=== PATIENT | male | born 1955 | race Caucasian/White ===

== ENCOUNTER 2021-03-15 12:13 | Emergency (ER) | payer OTHER, BC, SELFPAY ==
--- NOTE | ~2021-03-15 | CT_ITS ---
EXAMINATION: CT diagnostic chest wo con EXAM DATE: 03/15/2021 16:06 INDICATION: multiple rib fractures. TECHNIQUE: Spiral CT of the chest without contrast. Axial, coronal and sagittal images of the chest were reviewed. Coronal maximum intensity pixel images of chest reviewed. The dose-length product ( DLP) for this examination was 276.96 mGy-cm. The exposure was tailored according to patient size (au to mA exposure control), and iterative reconstruction (ASIR) was used as additional dose reduction te chnique. Correlation is made to left rib x-ray same date. FINDINGS: Acute left 5th and 6th rib fractures posteriorly with minimal displacement. Acute left 7th rib fracture posteriorly with mild displacement. Possible nondisplaced fractures of these 3 ribs ante rolaterally. Right lower lobe calcified granulomas. Mediastinal and right hilar calcified lymph nodes. Mild emphys bozena. No suspicious lung nodules or opacities. There are no pleural or pericardial effusions. Trach eobronchial tree is patent. There is no mediastinal, hilar or axillary lymphadenopathy. There is no pneumothorax. Heart normal in size. No evidence of coronary arterial calcification. There is right adrenal gland adenoma measuring 2.0 cm. There are splenic granulomata. There is thoracic spond ylosis without osteoblastic or osteolytic lesions identified. IMPRESSION: 1. Left 5th-7th rib fractures. 2. No pneumothorax. 3. Mild emphysema. 4. Granulomata. 5. Right adrenal adenoma. Reviewed, dictated and finalized at location A. R OPERATOR
--- NOTE | ~2021-03-15 | XR_ITS ---
EXAMINATION: XR elbow LT min 3V DATE: 03/15/2021 15:06 INDICATION: Left elbow pain. Fall. TECHNIQUE: 4 views of left elbow were obtained. COMPARISON: None. FINDINGS: Bone alignment is normal. No fracture. Joint spaces are normal. There are enthesophytes at medial and lateral humeral epicondyles. No elbow joint effusion. IMPRESSION: 1. No fracture. Reviewed, dictated and finalized at location A. DEVELOPER CONSULTANT IMPRESSION: 1. No fracture.
--- NOTE | ~2021-03-15 | XR_ITS ---
EXAMINATION: XR tibia fibula LT 2V DATE: 03/15/2021 15:05 INDICATION: Left lower leg injury. TECHNIQUE: 2 views of left tibia and fibula on 3 radiographs were obtained. COMPARISON: None. FINDINGS: Bone alignment is normal. No fracture. There is mild left knee osteoarthritis. IMPRESSION: 1. Mild left knee osteoarthritis. Reviewed, dictated and finalized at location A. RT SPECIALIST
--- NOTE | ~2021-03-15 | XR_ITS ---
XR ribs LT 2V w CXR 2V DATE: 03/15/2021 15:05 INDICATION: Left lateral and posterior rib pain following fall TECHNIQUE: Frontal and lateral views of chest. 5 left rib views COMPARISON: None FINDINGS: Posterior acute left fifth through seventh rib fractures are noted, with minimal displaceme nt of the left fifth and sixth rib fractures and approximately 4 mm displacement at the posterior lef t seventh rib fracture. Subtle nondisplaced likely recent lateral left sixth and seventh rib fracture s are noted as well. There is minimal atelectasis at the lung bases. No pneumothorax is identified. No pleural effusion is detected. Cardiac images also through unremarkable. There is aortic arch calcification. There is evidence of ol d pulmonary granulomatous disease. IMPRESSION: Multiple recent left rib fractures Reviewed, dictated and finalized at location A. Y WEIGHER
[2021-03-15 12:38] VITALS: BP 115/99; PULSE 76; RESP 20; TEMP 36.8; O2SAT 98
--- NOTE | 2021-03-15 14:27 | ED.FALL ---
HPI - Fall General Chief Complaint: Fall Stated Complaint: fall- cracked ribs Time Seen by Provider: 03/15/21 14:01 Source: patient Mode of arrival: wheelchair Limitations: no limitations History of Present Illness HPI Narrative: This is a 66 year old male that presents to the ER after a ground level fall today with rib pain. Reports he tripped over a cone and fell backwards. Reports left sided rib pain and superficial abrasions to the left elbow and left lower leg. He is up to date on tetanus. Denies hitting his head, loss of consciousness, vision changes, vomiting, numbness, or weakness. Related Data Allergies Allergy/AdvReac Type Severity Reaction Status Date / Time No Known Allergies Allergy Verified 03/15/21 13:57 Review of Systems Review of Systems: CONSTITUTIONAL: Denies fever EYES: Denies visual changes CARDIOVASCULAR: Reports chest/rib pain RESPIRATORY: Denies dyspnea. GASTROINTESTINAL: Denies vomiting MUSCULOSKELETAL: Reports joint pain, and myalgia. NEUROLOGIC: Denies numbness, or weakness. All systems reviewed & are unremarkable except as noted in HPI and below PMFSH Past Medical History Medical History (Updated 03/15/21 @ 17:27 by Laurie Lopez PA-C) No active medical problems Social History Social History (Updated 03/15/21 @ 14:35 by Laurie Lopez PA-C) Substance use: never Exam Narrative: GENERAL: Well-appearing, well-nourished, and in no acute distress. HEAD: Normocephalic, atraumatic. EYES: PERRLA and EOMI. ENT: Nares clear, no rhinorrhea or epistaxis. Mucous membranes moist. Oropharynx without tonsillar hypertrophy exudate or other lesions. Bilateral TMs pearly vang non-bulging NECK: Supple. No adenopathy or masses. No midline cervical spine tenderness CHEST: Clear to auscultation. No respiratory distress. No wheezes rales or rhonchi HEART: Regular rate and rhythm. No murmur heard. Normal peripheral pulses. BACK: No midline thoracic or lumbar spine tenderness EXTREMITIES: Normal range of motion. No edema or obvious deformity. SKIN: Warm, dry, no rash. Left elbow with superficial abrasions. 2 cm irregular laceration to the left bass into subcutaneous tissue NEURO: No focal deficits. Alert and oriented x3. Cranial nerves II through XII grossly intact PSYCH: Normal mood and affect Course Vital Signs Vital signs: Vital Signs Temperature 98.3 F 03/15/21 12:38 Pulse Rate 76 03/15/21 12:38 Respiratory Rate 20 03/15/21 12:38 Blood Pressure 115/99 H 03/15/21 12:38 Pulse Oximetry 98 03/15/21 12:38 Temperature 99.2 F 03/15/21 16:12 Pulse Rate 76 03/15/21 16:12 Respiratory Rate 18 03/15/21 16:12 Blood Pressure 176/76 H 03/15/21 16:12 Pulse Oximetry 100 03/15/21 16:12 Procedures Laceration Laceration 1: Date: 03/15/21 Time: 17:21 Site: lower extremity Side (If applicable): left Size (cm): 2 Description: irregular Depth: simple, single layer Local Anesthetic: lidocaine 1% and with epi Amount of anesthesia used (mL): 3 Pre-repair: irrigated ====== Skin Level ====== Skin layer closed with: nylon Size (cm): 4-0 Number of sutures: 2 Technique: simple, interrupted and horizontal mattress ====== Subcutaneous Layer ====== ====== Muscle Layer ====== ====== Tendon Layer ====== MDM - Fall MDM Narrative Medical decision making narrative: Patient presents to the emergency department after a ground-level fall today with left-sided rib pain, and left elbow and lower leg injuries. Patient's wounds were irrigated. Patient is up-to-date on tetanus. I did suture one of the wounds. The other was more superficial skin avulsion which was bandaged. Left tib-fib x-rays without acute osseous abnormalities. Left elbow x-ray also without acute osseous abnormalities. Left rib/chest x-ray shows multiple left-sided rib fractures. Due to the CT scan of the
[2021-03-15] MEDS: ACETAMINOPHEN 500 MG TABLET 1000 MG PO (15:03)
[2021-03-15] MEDS: KETOROLAC (*BKC) 60 MG/2 ML VIAL IM (15:04)
[2021-03-15 16:12] VITALS: BP 176/76; PULSE 76; RESP 18; TEMP 37.3; O2SAT 100
== END 2021-03-15 17:39 | disposition home or self-care (01) ==
PROVIDERS: Emergency Provider Emergency Medicine; PCP Family Medicine
DX: S22.42XA Multiple fractures of ribs, left side, initial encounter for closed fracture (principal); D35.01 Benign neoplasm of right adrenal gland; W01.0XXA Fall on same level from slipping, tripping and stumbling without subsequent striking against object, initial encounter
CPT/HCPCS: 12001; 71046; 71100; 71250; 73080; 73590; 96372; 99284; A9270; J1885